=== PATIENT | male | born 1995 | race Caucasian/White ===

== ENCOUNTER 2023-03-18 14:05 | Emergency (ER) | payer BC ==
[~2023-03-18] VITALS: Ht 177.8 cm; Wt 72.6 kg
[~2023-03-18 14:05] MED LIST: ALBIPROI INH; ALBU90OI61; CEPH250A PO; CETI5 PO; CLAR250SU PO; CODGUAEL PO; CYCL10 PO; METPHE10 PO; Motrin600 MG PO; PRED15SY PO; RANI150 PO; Tylenol With C1 EACH PO
[2023-03-18 14:47] LABS: BASOPHILS ABSOLUTE AUTO 0.03 K/mm3 (0.00-0.23); BASOPHILS PERCENT AUTO 0 % (0-2); EOSINOPHILS ABSOLUTE AUTO 0.18 K/mm3 (0.00-0.68); EOSINOPHILS PERCENT AUTO 3 % (0-6); Hematocrit 41.4 % (37.0-53.0); Hemoglobin 14.3 g/dL (13.5-17.5); IMMATURE GRAN ABSOLUTE AUTO 0.02 K/mm3 (0.00-0.10); IMMATURE GRAN PERCENT AUTO 0 % (0-1); LYMPHOCYTES ABSOLUTE AUTO 1.45 K/mm3 (0.84-5.20); LYMPHOCYTES PERCENT AUTO 22 % (21-46); MONOCYTES ABSOLUTE AUTO 0.62 K/mm3 (0.16-1.47); MONOCYTES PERCENT AUTO 9 % (4-13); Mean Corpuscular HGB 30.6 pg (26.0-34.0); Mean Corpuscular HGB Conc 34.5 g/dL (31.5-36.5); Mean Corpuscular Volume 89 fL (80-100); Mean Platelet Volume 9.4 fL (9.1-12.4); NEUTROPHILS ABSOLUTE AUTO 4.45 K/mm3 (1.96-9.15); NEUTROPHILS PERCENT AUTO 66 % (41-73); Platelet Count 219 K/mm3 (150-400); RDW Coefficient Variation 12.4 % (11.7-14.2); RDW Standard Deviation 40.5 fL (35.1-46.3); Red Blood Cell Count 4.68 M/mm3 (4.30-5.90); White Blood Cell Count 6.75 K/mm3 (4.00-11.30)
[2023-03-18 15:05] LABS: Albumin, Blood 3.9 g/dL (3.4-5.0); Albumin/Globulin Ratio 1.2 (0.8-1.8); Bilirubin, Total 1.1 mg/dL (0.1-1.0); Bun/Creatinine Ratio 15.4 (12.0-20.0); Calcium, Blood 9.3 mg/dL (8.5-10.1); Creatinine, Blood 0.78 mg/dL (0.60-1.20); Globulin, Blood 3.2 g/dL (2.2-4.0); Magnesium, Blood 1.8 mg/dL (1.6-2.4); Potassium, Blood 4.1 mmol/L (3.5-5.5); Total Protein, Blood 7.1 g/dL (6.4-8.2)
[2023-03-18 16:28] VITALS: BP 129/77
== END 2023-03-18 16:34 | disposition home or self-care (01) ==
LOC: ER 14:05
PROVIDERS: Physician Assistant
DX: R10.13 Epigastric pain (principal); R11.2 Nausea with vomiting, unspecified; R19.7 Diarrhea, unspecified
CPT/HCPCS: 80053; 83690; 83735; 85025; 96360; 99284; A9270; J7030

== ENCOUNTER 2024-06-16 19:33 | Emergency (ER) | payer BC ==
[~2024-06-16] VITALS: Ht 180.3 cm; Wt 68.0 kg
[2024-06-16 19:38] VITALS: BP 145/91
[2024-06-16] MEDS ORDERED: Diphth,Pertuss(Acell),Tet Vac 0.5 ML VIAL IM ONE (20:20)
== END 2024-06-16 20:49 | disposition home or self-care (01) ==
LOC: ER 19:33
DX: S01.81XA Laceration without foreign body of other part of head, initial encounter (principal); Z91.030 Bee allergy status; Z91.018 Allergy to other foods; W20.8XXA Other cause of strike by thrown, projected or falling object, initial encounter
CPT/HCPCS: 12013; 90471; 90715; 99282-25

== ENCOUNTER 2024-06-22 15:58 | Emergency (ER) | payer BC ==
[~2024-06-22] VITALS: Ht 180.3 cm; Wt 72.6 kg
[2024-06-22 16:01] VITALS: BP 121/62
== END 2024-06-22 16:12 | disposition home or self-care (01) ==
LOC: ER 15:58
DX: Z48.02 Encounter for removal of sutures (principal); F17.210 Nicotine dependence, cigarettes, uncomplicated
CPT/HCPCS: 99281